=== PATIENT | male | born 1985 | race Two or more races ===

== ENCOUNTER 2017-09-19 14:12 | Emergency (ER) | payer OTHER ==
[~2017-09-19] VITALS: Ht 177.8 cm; Wt 83.9 kg
[2017-09-19 14:46] LABS: BASOPHILS # (AUTO) 0.1 /CMM (0.0-0.2); BASOPHILS % (AUTO) 0.6 % (0.0-2.0); EOSINOPHILS # (AUTO) 0.1 /CMM (0.0-0.7); EOSINOPHILS % (AUTO) 0.7 % (0.0-6.0); HEMATOCRIT 42 % (39-51); HEMOGLOBIN 14.5 g/dL (13.5-17.5); LYMPHOCYTES # (AUTO) 3.2 /CMM (0.8-4.8); LYMPHOCYTES % (AUTO) 21.8 % (20.0-44.0); MEAN CORPUSCULAR HEMOGLOBIN 29 PG (26.0-33.0); MEAN CORPUSCULAR HGB CONC 35 g/dl (31.0-36.0); MEAN CORPUSCULAR VOLUME 84 fL (80-96); MONOCYTES # (AUTO) 0.9 /CMM (0.1-1.30); MONOCYTES % (AUTO) 6.4 % (2.0-12.0); NEUTROPHILS # (AUTO) 10.5 /CMM (1.8-8.9); NEUTROPHILS % (AUTO) 70.5 % (43.0-81.0); PLATELET COUNT (AUTO) 315 /CMM (150-450); RDW COEFFICIENT OF VARIATION 13.1 (11.5-15.0); RED BLOOD CELL COUNT(AUTO) 5.05 MIL/uL (4.5-6.0); WHITE BLOOD COUNT (AUTO) 14.8 K/uL (4.3-11.0)
[2017-09-19 14:49] LABS: APPEARANCE,URINE Clear (CLEAR); BILIRUBIN,URINE SMALL (NEGATIVE); BLOOD, URINE Negative Ery/uL (NEGATIVE); COLOR,URINE Yellow (YELLOW); KETONES,URINE 15 (NEGATIVE); LEUKOCYTE ESTERASE ,URINE Negative (NEGATIVE); NITRITE, URINE Negative (NEGATIVE); PH,URINE 5.5 (5.0-8.0); PROTEIN,URINE 30 mg/dl (NEGATIVE); UGLUCOSE Negative (NEGATIVE)
[2017-09-19] MEDS ORDERED: NALOXONE PREFILLED SYRINGE 2 MG/2 ML SYRINGE ONE (14:50)
[2017-09-19 15:00] LABS: CALCIUM, SERUM 9.4 mg/dL (8.5-10.1); CARBON DIOXIDE 23 mmol/L (21-32); CHLORIDE 104 mmol/L (98-107); CREATININE 1.2 mg/dL (0.6-1.3); GLUCOSE 57 mg/dL (74-106); POTASSIUM 3.4 mmol/L (3.5-5.1); SODIUM SERUM 141 mmol/L (136-145); UREA NITROGEN, BLOOD 15 mg/dL (7-18)
[2017-09-19] MEDS ORDERED: NALOXONE HCL 0.4 MG/ML AMPUL IV ONE (15:00)
[2017-09-19] MEDS ORDERED: IV NS 0.9% 1,000 ML BAG IV ONE (15:00)
[2017-09-19 15:02] LABS: BACTERIA,URINE Rare /HPF (None Seen); RBC,URINE 0-2 /HPF (0-2); SQUAMOUS EPITHELIAL CELL,UR Few /HPF (None Seen); WBC,URINE 0-2 /HPF (0-3)
[2017-09-19 15:09] LABS: ACETAMINOPHEN < 2 ug/ml (10-30); ALANINE AMINOTRANSFERASE 21 U/L (12-78); ALBUMIN 4.1 g/dL (3.4-5.0); ALCOHOL, BLOOD < 3 mg/dL (0-0); ALKALINE PHOSPHATASE 77 U/L (46-116); ASPARTATE AMINOTRANSFERASE 30 U/L (15-37); BILIRUBIN,DIRECT 0.2 mg/dL (0.0-0.2); BILIRUBIN,TOTAL 1.4 mg/dL (0.2-1.0); SALICYLATE 0.2 mg/dL (2.8-20.0); TOTAL PROTEIN, SERUM 9.4 g/dL (6.4-8.2)
--- NOTE | 2017-09-19 15:16 | NUR ---
PT GOING TO CT.
[2017-09-19 15:22] LABS: THYROID STIMULATING HORMONE 0.959 uIU/mL (0.358-3.74)
[2017-09-19] MEDS ORDERED: DEXTROSE 50%-WATER 50 ML DISP.SYRIN ONE ×2 (15:23→22:05)
[2017-09-19] MEDS ORDERED: DEXTROSE 50%-WATER 50 ML DISP.SYRIN IVP ONE ×2 (15:30→22:00)
--- NOTE | 2017-09-19 16:20 | NUR ---
PT APPEARS TO BE RESTING COMFORTABLY. NO S/S OF PAIN OR DISTRESS. PT IS ON THE MONITOR AND CONTINUOUS PULSE OX. PT IS SATURATING AT 99% ON RA. VSS. RESP EVEN AND UNLABORED. RESTRAINT RELEASE AND ROM DONE. PT ADJUSTED IN BED.
--- NOTE | 2017-09-19 18:20 | NUR ---
PT APPEARS TO BE SLEEPING COMFORTABLY. PT IS ON THE MONITOR AND CONTINUOUS PULSE OX. RESP EVEN AND UNLABORED. RESTRAINTS REMOVED ONE AT A TIME FOR ROM AND REPLACED. VSS
--- NOTE | 2017-09-19 20:15 | NUR ---
PT APPEARS TO BE SLEEPING SOUNDLY WITH NO S/S OF PAIN OR DISTRESS.
--- NOTE | 2017-09-19 21:52 | NUR ---
PT REC'D 4 JUICES AND TOLERATED PO WELL. PT IS ON ONE RESTRAINT. PT IS ON THE MONITOR AND CONTINUOUS PULSE OX.
--- NOTE | 2017-09-19 22:08 | NUR ---
ACCUCHECK DONE. BS = 69. 1 AMP DEXTROSE GIVEN
--- NOTE | 2017-09-19 22:30 | NUR ---
PT APPEARS TO BE SLEEPING COMFORTABLY. VSS.
--- NOTE | 2017-09-19 23:18 | NUR ---
PT IS REQUESTING A SANDWICH. PT REC'D A SANDWICH AND A GATORADE. PT TOLERATED PO WELL.
--- NOTE | 2017-09-19 23:22 | NUR ---
ACCUCHECK DONE. BS = 135
--- NOTE | 2017-09-20 01:00 | NUR ---
PT REC'D WATER AND TOLERATED PO WELL.
--- NOTE | 2017-09-20 01:45 | NUR ---
PT APPEARS TO BE SLEEPING SOUNDLY WITH NO S/S OF PAIN OR DISTRESS.
--- NOTE | 2017-09-20 02:14 | NUR ---
UPDATED NOHEMY JAMES/CHG ON PT.
--- NOTE | 2017-09-20 03:20 | NUR ---
Patient is resting comfortably in bed with eyes closed. Easily aroused. VSS
--- NOTE | 2017-09-20 04:30 | NUR ---
IV removed. Catheter intact and site benign. Pressure and 4x4 applied to site. No bleeding noted.
--- NOTE | 2017-09-20 05:00 | NUR ---
Patient is resting comfortably in bed with eyes closed. Easily aroused. VSS
--- NOTE | 2017-09-20 06:32 | NUR ---
Patient is resting comfortably in bed with eyes closed. Easily aroused. VSS
--- NOTE | 2017-09-20 08:45 | NUR ---
PATIENT AMBULATING WITH STABLE GAIT. ALERT/ORIENTED AT THIS TIME. MD INFORMED.
[2017-09-20 08:54] VITALS: BP 116/61
--- NOTE | 2017-09-20 08:54 | NUR ---
Patient discharged to home in stable condition. Written and verbal after care instructions given. Patient verbalizes understanding of instruction.
== END 2017-09-20 08:56 | disposition home or self-care (01) ==
LOC: ER 14:14
DX: F15.10 Other stimulant abuse, uncomplicated (principal)
CPT/HCPCS: 36415; 70450-TC; 71045-TC; 80048-TC; 80076-TC; 80305; 81000-TC; 82962-TC; 84443-TC; 85025-TC; A4606; G0480; J2310; J7030; Z7610